=== PATIENT | female | born 1970 | race American Indian/Alaskan Native ===

== ENCOUNTER 2016-08-28 10:07 | Emergency (ER) | payer BC ==
[2016-08-28 10:38] VITALS: BP 187/122
--- NOTE | 2016-08-28 11:40 | Emergency Department Report ---
Chief Complaint: Vaginal Bleeding Stated Complaint: HEAVY BLEEDING/W CLOTS Time Seen by Provider: 08/28/16 11:40 - HPI History of Present Illness: Patient here reports vaginal bleeding for 2 weeks. Patient complaint abdominal pain all over her abdomen. Patient reports that she is scheduled for surgery sometimes this month. She goes to [place] [facility] for uterine fibroids. She said the last time she saw her [facility] at [place] was in July. She says she had a WA for abdomen 3 days ago and the results are pending. Patient says she's had previous workup initiated that she had multiple fibroids. She has paperwork with her. The pain is 10 out of 10 and cramping. She is also having back pain that started out of 10. blood pressure is 187/122 over she takes lisinopril and she said she just can't at 11:50 AM. Patient reports that she's having heavy bleeding and using several pads per day and she is passing clots. Denies any vomiting or diarrhea. Denies any urinary burning frequency or urgency. - ROS Review of Systems: All systems are negative unless stated in HPI above - Exam Vital Signs: Vital Signs 08/28/16 10:34 Temperature 98.1 F Pulse Rate 87 Respiratory 24 Rate Blood Pressure 187/122 O2 Sat by Pulse 98 Oximetry Physical Exam: General: This is a 46-year-old female well-nourished well-developed nontoxic in appearance. SHe is moaning and groaning from abdominal pain. CV: S1, S2. Regular rate and rhythm. Lungs: Clear to auscultate bilaterally. No rhonchi wheezes or rales. Abdomen: Tender to palpate to abdominal quadrants. Positive guarding and rebound tenderness. Normal bowel sounds in all quadrants. MSE screening note: Focused history and physical exam performed. Due to findings the following was ordered:see [facility] ED Medical Decision Making - Medical Decision Making Medical decision making: Patient seen by provider in triage area. Appropriate protocol activated and patient to main ED to be seen by physician. ED Disposition for MSE Condition: Stable
[2016-08-28 12:24] LABS: Basophils % (Auto) 0.9 % (0.0-1.8); Eosinophils % (Auto) 1.1 % (0.0-4.3); Hemoglobin 10.1 gm/dl (10.1-14.3); Mean Corpuscular HGB Conc 33 % (30-34); Mean Corpuscular Hemoglobin 27 pg (28-32); Mean Corpuscular Volume 84 fl (79-97); Platelet Count 426 K/mm3 (140-440); White Blood Count 5.8 K/mm3 (4.5-11.0)
[2016-08-28 12:41] LABS: Alanine Aminotransferase 14 units/L (7-56); Albumin 3.7 g/dL (3.9-5); Albumin/Globulin Ratio 1.1 %; Alkaline Phosphatase 49 units/L (35-129); Anion Gap 19 mmol/L; Bilirubin,Total 0.2 mg/dL (0.1-1.2); Blood Urea Nitrogen 14 mg/dL (7-17); Calcium 8.6 mg/dL (8.4-10.2); Carbon Dioxide 22 mmol/L (22-30); Chloride 101.5 mmol/L (98-107); Glucose 88 mg/dL (65-100); Lipase 20 units/L (13-60); Potassium 4.2 mmol/L (3.6-5.0); Sodium 138 mmol/L (137-145); Total Protein 7.2 g/dL (6.3-8.2)
[2016-08-28 14:02] LABS: Bilirubin,Urine NEG (Negative); Blood,Urine LG (Negative); Ketones,Urine 20 mg/dL (Negative); Leukocyte Esterase,Urine TR (Negative); Nitrite,Urine POS (Negative); Urobilinogen,Urine < 2.0 mg/dL (<2.0)
[2016-08-28 14:22] LABS: RBC,Urine > 182.0 /HPF (0.0-6.0)
[2016-08-28 14:23] LABS: WBC,Urine > 182.0 /HPF (0.0-6.0)
[2016-08-28] MEDS ORDERED: MOTRIN PO ONE (14:44)
[2016-08-28] MEDS ORDERED: MOTRIN ONE (14:44)
[2016-08-28] MEDS ORDERED: NORCO 10/325 PO ONE (16:46)
[2016-08-28] MEDS ORDERED: TRIMOX PO ONE (16:47)
--- NOTE | 2016-08-28 17:03 | Emergency Department Report ---
ED Female HPI - General Chief complaint: Vaginal Bleeding Stated complaint: HEAVY BLEEDING/W CLOTS Time Seen by Provider: 08/28/16 11:39 Source: patient Mode of arrival: Wheelchair Limitations: No Limitations - History of Present Illness Initial comments: 6-year-old female comes in for complaint of abdominal pain. Patient was scheduled to have surgery for her fibroids. Patient reports that she did have her ultrasound done and show multiple large uterine fibroids. She is scheduled for MRI on Wednesday. She reports that she woke up this morning in blood. She did disclose that she was at [facility] a week ago for vaginal bleeding and anemic. Since then patient reports she has been eating liver, collared greens to increase her iron intake. Patient reports that her primary medical doctor has been trying to get in touch with [facility] for them to manage her pain until her fiber surgery is scheduled. - Related Data Previous Rx's Medication Instructions Recorded Last Taken Type Lisinopril [Zestril TAB] 10 mg PO QDAY #30 tablet 01/04/14 09/01/14 Rx Amoxicillin [Amoxicillin TAB] 875 mg PO BID #20 tablet 08/28/16 Unknown Rx HYDROcodone/APAP 5-325 [[place] 1 each PO Q6HR PRN #12 tablet 08/28/16 Unknown Rx 5/325] Allergies Allergy/AdvReac Type Severity Reaction Status Date / Time No Known Allergies Allergy Verified 07/04/13 16:46 ED Review of Systems ROS: Stated complaint: HEAVY BLEEDING/W CLOTS Other details as noted in HPI ED Past Medical Hx - Past Medical History Previous Medical History?: Yes Hx Hypertension: Yes Hx CVA: Yes (TIA) Hx Congestive Heart Failure: No Hx Diabetes: No Hx Sickle Cell Disease: No Hx Seizures: No Hx Asthma: No Hx COPD: No Additional medical history: GALLSTONES - Surgical History Past Surgical History?: Yes Hx Cholecystectomy: Yes Additional Surgical History: GALLSTONES removed 2007 - Social History Smoking Status: Current Some Day Smoker Substance Use Type: Alcohol - Medications Home Medications: Home Medications Medication Instructions Recorded Confirmed Last Taken Type Lisinopril [Zestril TAB] 10 mg PO QDAY #30 tablet 01/04/14 09/02/14 09/01/14 Rx Amoxicillin [Amoxicillin TAB] 875 mg PO BID #20 tablet 08/28/16 Unknown Rx HYDROcodone/APAP 5-325 [[place] 1 each PO Q6HR PRN #12 tablet 08/28/16 Unknown Rx 5/325] ED Physical Exam - General Limitations: No Limitations General appearance: alert, in no apparent distress - Respiratory Respiratory exam: Present: normal lung sounds bilaterally - Cardiovascular Cardiovascular Exam: Present: regular rate, normal rhythm - GI/Abdominal GI/Abdominal exam: Present: soft, distended, tenderness, normal bowel sounds - Extremities Exam Extremities exam: Present: normal inspection, full ROM ED Course Vital Signs 08/28/16 10:34 Temperature 98.1 F Pulse Rate 87 Respiratory 24 Rate Blood Pressure 187/122 O2 Sat by Pulse 98 Oximetry ED Medical Decision Making - Lab Data Result diagrams: 08/28/16 12:09 08/28/16 12:09 Critical care attestation.: If time is entered above; I have spent that time in minutes in the direct care of this critically ill patient, excluding procedure time. ED Disposition Clinical Impression: UTI (urinary tract infection) Qualifiers: Urinary tract infection type: urethritis Qualified Code(s): N34.2 - Other urethritis Disposition: DISCHARGED TO HOME OR SELFCARE Is pt being admited?: No Does the pt Need Aspirin: No Condition: Stable Prescriptions: Amoxicillin [Amoxicillin TAB] 875 mg PO BID #20 tablet HYDROcodone/APAP 5-325 [[place] 5/325] 1 each PO Q6HR PRN #12 tablet PRN Reason: Pain
== END 2016-08-28 17:36 | disposition home or self-care (01) ==
LOC: ED 10:07
DX: N34.2 Other urethritis (principal); I10 Essential (primary) hypertension; Z86.73 Personal history of transient ischemic attack (TIA), and cerebral infarction without residual deficits; F17.200 Nicotine dependence, unspecified, uncomplicated
CPT/HCPCS: 36415; 80053; 81001; 82150; 83690; 84703; 85025; 86850; 86900; 86901; 99284